=== PATIENT | male | born 1965 | race Caucasian/White ===

== ENCOUNTER 2018-12-30 19:14 | Emergency (ER) | payer OTHER ==
[2018-12-30 19:21] VITALS: RESP 18
[2018-12-30] MEDS ORDERED: MORPHINE SULFATE 4 MG/ML SYRINGE IM STA (19:55)
--- NOTE | 2018-12-30 20:25 | CT ---
EXAMINATION TYPE: CT lumbar spine wo con DATE OF EXAM: 12/30/2018 8:15 PM COMPARISON: None HISTORY: Patient hurt his back lifting branches 3 days ago. Getting progressively worse. CT DLP: 899 mGycm Automated exposure control for dose reduction was used. Unenhanced CT of the lumbar spine was performed. Bone and soft tissue window settings are submitted as well as coronal and sagittal reconstructions. Lumbar vertebra have fairly normal spacing and alignment. There is no compression fracture. Facet janusz nts are intact. Posterior elements are intact. There is no spondylolysis. There is no lumbar paraspin al mass. There is mild posterior disc bulging at L5-S1. There is no sign of spinal stenosis. Sacroili ac joints appear intact. There is developmentally large spinal canal. IMPRESSION: Small posterior disc bulging at L5-S1. Otherwise negative exam. No spinal stenosis. No fracture.
[2018-12-30] MEDS ORDERED: methylPREDNISolone SOD SUCCI 125 MG/2 ML VIAL IM STA (20:29)
[2018-12-30] MEDS ORDERED: KETOROLAC 60 MG/2 ML VIAL IM STA (21:07)
[2018-12-30 21:28] LABS: Appearance,Urine Cloudy (Clear); Bilirubin,Urine Negative (Negative); Blood,Urine Negative (Negative); Budding Yeast,Urine Many /hpf; Color,Urine Light Yellow; Glucose,Urine (UA) Negative (Negative); Ketones,Urine Negative (Negative); Leukocyte Esterase,Urine Negative (Negative); Nitrite,Urine Negative (Negative); PH, Urine 7.5 (5.0-8.0); Protein,Urine Negative (Negative); Specific Gravity,Urine 1.015 (1.001-1.035); Urobilinogen,Urine <2.0 mg/dL (<2.0)
[2018-12-30] MEDS ORDERED: FLUCONAZOLE 150 MG TAB PO STA (21:48)
[2018-12-30] MEDS ORDERED: HYDROmorphone 1 MG/ML 1 ML SYRINGE IM STA (21:55)
--- NOTE | 2018-12-30 22:23 | ED ---
General Adult HPI - General Chief complaint: Back Pain/Injury Stated complaint: tailbone pain Time Seen by Provider: 12/30/18 19:24 Source: patient, RN notes reviewed, old records reviewed Mode of arrival: ambulatory Limitations: no limitations - History of Present Illness Initial comments: 53-year-old male patient with no pertinent past history presents to ED chief complaint of lumbar back pain. He is well reports that on Friday he was carrying tree limbs, began to experience lumbar back pain. Patient reports that also wash his car and stands at work doing other physical activity. Patient was the pain is in her midline lumbar back region has gotten progressively worse. Patient was is worse with movement. Patient denies any loss of bowel or bladder control. Patient denies any saddle anesthesia, lower extremity paresthesias. Denies any falls or trauma. Denies any other complaints. Systemic: Pt denies fatigue, fever/chills, rash. Pt denies weakness, night sweats, weight loss. Neuro: Pt denies headache, visual disturbances, syncope or pre-syncope. HEENT: Pt denies ocular discharge or irritation, otalgia, rhinorrhea, pharyngitis or notable lymphadenopathy. Cardiopulmonary: Pt denies chest pain, SOB, heart palpitations, dyspnea on exertion. Abdominal/GI: Pt denies abdominal pain, n/v/d. : Pt denies dysuria, burning w/ urination, frequency/urgency. Denies new onset urinary or bowel incontinence. MSK: Pt denies loss of strength or function in extremities. Neuro: Pt denies new onset weakness, paresthesias. - Related Data Previous Rx's Medication Instructions Recorded Cyclobenzaprine [Flexeril] 1 - 2 tab PO TID PRN #20 tablet 12/30/18 predniSONE 50 mg PO Q24HR 4 Days #4 tablet 12/30/18 Allergies Allergy/AdvReac Type Severity Reaction Status Date / Time No Known Allergies Allergy Verified 12/30/18 19:18 Review of Systems ROS Statement: Those systems with pertinent positive or pertinent negative responses have been documented in the HPI. ROS Other: All systems not noted in ROS Statement are negative. Past Medical History Past Medical History: No Reported History History of Any Multi-Drug Resistant Organisms: None Reported Past Surgical History: No Surgical Hx Reported Smoking Status: Never smoker Past Alcohol Use History: None Reported Past Drug Use History: None Reported General Exam - General Exam Comments Initial Comments: Constitutional: NAD, AOX3, Pt has pleasant affect. HEENT: NC/AT, trachea midline, neck supple, no lymphadenopathy. Posterior pharynx non erythematous, without exudates. External ears appear normal, without discharge. Mucous membranes moist. Eyes PERRLA, EOM intact. There is no scleral icterus. No pallor noted. Cardiopulmonary: RRR, no murmurs, rubs or gallops, no JVD noted. Lungs CTAB in anterior and posterior chapman. No peripheral edema. Abdominal exam: Abdomen soft and non-distended. Abdomen non-tender to palpation in all 4 quadrants. Bowel sounds active in LLQ. No hepatosplenomegaly. No ecchymosis Neuro: CN II-XII grossly intact. No nuchal rigidity. No raccon eyes, no ramon sign, no hemotympanum. No cervical spinal tenderness. MSK: Midline lumbar spine mildly tender to palpation. Right straight leg raise positive. Distal pulses intact and equal. Patient is ambulatory. 5 out of 5 strength lower extremities. No posterior calf tenderness bilaterally, homans sign negative bilaterally. Posterior tibialis and radial pulse +2 bilaterally. Sensation intact in upper and lower extremities. Full active ROM in upper and lower extremities, 5/5 stregnth. Rectal: Good rectal tone. Limitations: no limitations Course Vital Signs 12/30/18 19:18 Temperature 98 F Pulse Rate 74 Respiratory 18 Rate Blood Pressure 143/76 O2 Sat by Pulse 98 Oximetry Medical Decision Making - Medical Decision Making 53-year-old male patient with no pertinent past history presents to ED chief complaint of lumbar back pain. He is well reports that on Friday he was carrying tree limbs, began to experience lumbar back pain. Patient reports that also wash his car and stands at work doing other physical activity. Patient was the pain is in her midline lumbar back region has gotten progressively worse. Patient was is worse with movement. Patient denies any loss of bowel or bladder control. Patient denies any saddle anesthesia, lower extremity paresthesias. Denies any falls or trauma. Denies any other complaints. Pt VSS, afebrile. Physical exam displayed: Midline lumbar spine mildly tender to palpation. Right straight leg raise positive. Distal pulses intact and equal. Patient is ambulatory. 5 out of 5 strength lower extremities. Good rectal tone. CT lumbar spine displayed small posterior disc bulging L5-S1, otherwise negative. UA displayed many budding yeast, patient treated with Diflucan. Patient administered pain medications, steroids, Diflucan ED. Patient feeling much improved. Patient was discharged with steroids, muscle relaxers and outpatient orthopedic follow-up. Return precautions discussed. Case discussed with Dr. Larsen. - Lab Data Lab Results 12/30/18 Range/Units 21:13 Urine Color Light Yellow Urine Appearance Cloudy (Clear) Urine pH 7.5 (5.0-8.0) Ur Specific [place] 1.015 (1.001-1.035) Urine Protein Negative (Negative) Urine Glucose (UA) Negative (Negative) Urine Ketones Negative (Negative) Urine Blood Negative (Negative) Urine Nitrite Negative (Negative) Urine Bilirubin Negative (Negative) Urine Urobilinogen <2.0 (<2.0) mg/dL Ur Leukocyte Esterase Negative (Negative) Urine Yeast (Budding) Many H (None) /hpf Disposition Clinical Impression: Lumbar back sprain Disposition: HOME SELF-CARE Condition: Stable Instructions (If sedation given, give patient instructions): Acute Low Back Pain (ED) Additional Instructions: Patient to adhere to previously discussed treatment plan and will take medication(s) as directed. Patient to follow up with PCP in 1-2 days. Patient to return to ED if symptoms do not improve. Take medications as directed. Follow up with orthopedic consult tomorrow. Return to ER if condition worsens. Prescriptions: Cyclobenzaprine [Flexeril] 1 - 2 tab PO TID PRN #20 tablet PRN Reason: muscle spasm predniSONE 50 mg PO Q24HR 4 Days #4 tablet Is patient prescribed a controlled substance at d/c from ED?: No Referrals: [facility] Pain[facility] MD [Primary Care Provider] - 1-2 days Shashank Proctor DO [Doctor of Osteopathic Medicine] - 1-2 days
[2018-12-30 22:46] VITALS: BP 124/72; PULSE 62; TEMP 98.4
== END 2018-12-30 22:44 | disposition home or self-care (01) ==
LOC: EC 19:14
DX: S33.5XXA Sprain of ligaments of lumbar spine, initial encounter (principal)
CPT/HCPCS: 81001; 72131; 99284; 96372 ×4; J2270; J2930; J1885; J1170

== ENCOUNTER → 2022-09-26 | Outpatient (CLI) | payer OTHER ==
--- NOTE | 2022-09-27 17:00 | NM ---
EXAMINATION TYPE: NM bone scan whole body DATE OF EXAM: 09/27/2022 COMPARISON: NONE HISTORY: Radiculopathy cervical Delayed whole-body scanning was performed following the injection of 22.6 mCi Tc 99m MDP. Images wer e acquired 4 hours post injection. FINDINGS: Body bone scan imaging is performed. No suspicious focal uptake is identified. Some mild degenerative type uptake may be within the digits of the hands, most notably the fifth left digit. Suspicious upt [place] within the cervical spine is not identified. No suspicious photopenic defects. IMPRESSION: 1. No suspicious uptake within the cervical spine. 2. Mild radiotracer within the left fifth digit of the hand.
== END | disposition home or self-care (01) ==
LOC: RADNMMAIN 09:51
PROVIDERS: ATTEND Physical Medicine & Rehabilitation
DX: M50.120 Mid-cervical disc disorder, unspecified level (principal); M19.042 Primary osteoarthritis, left hand; M41.24 Other idiopathic scoliosis, thoracic region
CPT/HCPCS: 78306; A9503